=== PATIENT | male | born 1960 | race Caucasian/White ===

== ENCOUNTER → 2017-12-01 | Outpatient (CLI) | payer BC ==
[~2017-12-01] MED LIST: IOPAMIDOL (ISOVUE 370) 100 ML BTL IV ONE
== END ==
LOC: FIMAGING 14:12
PROVIDERS: ATTEND Internal Medicine Cardiovascular Disease
DX: I71.2 Thoracic aortic aneurysm, without rupture (principal); K76.0 Fatty (change of) liver, not elsewhere classified
CPT/HCPCS: Q9967

== ENCOUNTER → 2018-10-30 | Outpatient (CLI) | payer BC | LOC: FIMAGING 12:59 ==

== ENCOUNTER 2018-11-06 05:48 | Observation (INO) | payer BC ==
[2018-11-06] MEDS ORDERED: ceFAZolin 2 GM/DEXTROSE 100 ML IV ONE (06:06)
[2018-11-06] MEDS ORDERED: DEXAMETHASONE 4 MG/ML VIAL IVP ONE (06:06)
[2018-11-06] MEDS ORDERED: FAMOTIDINE 20 MG TAB PO ONE (06:06)
[2018-11-06] MEDS ORDERED: ACETAMINOPHEN 325 MG TAB PO ONE (06:06)
[2018-11-06] MEDS ORDERED: LR 1,000 ML IV ONE (06:07)
--- NOTE | 2018-11-06 06:13 | PDHPUP ---
History & Physical Update H&P update statement: This history and physical update is based on an assessment of the patient which was completed after admission or registration (within 24 hours), but prior to the surgery/procedure. H&P update: H&P reviewed & patient examined, no change in patient's condition since H&P completed
[2018-11-06] MEDS ORDERED: TRANEXAMIC ACID 3,000 MG/50 ML BAG IRR ONE (07:00)
[2018-11-06] MEDS ORDERED: ONDANSETRON 4 MG/2 ML VIAL IVP PRN ×2 (07:27→09:41)
[2018-11-06] MEDS ORDERED: oxyCODONE IR 5 MG TAB PO PRN (07:27)
[2018-11-06] MEDS ORDERED: DEXAMETHASONE 4 MG/ML VIAL IVP PRN (07:27)
[2018-11-06] MEDS ORDERED: ALBUTEROL 3 ML DEYVIAL IH PRN (07:27)
[2018-11-06] MEDS ORDERED: NALOXONE HCL 0.4 MG/ML INJ IVP PRN (07:27)
[2018-11-06] MEDS ORDERED: MIDAZOLAM 2 MG/2 ML VIAL IVP ONE (07:27)
[2018-11-06] MEDS ORDERED: ACETAMINOPHEN 500 MG TAB PO PRN (07:27)
--- NOTE | 2018-11-06 07:28 | PDANEPAE ---
ANE History of Present Illness R Knee ANE Past Medical History - Cardiovascular History Hx Hypertension: Yes Hx Arrhythmias: No Hx Chest Pain: No Hx Coronary Artery / Peripheral Vascular Disease: No Hx CHF / Valvular Disease: No Hx Palpitations: No Cardiovascular History Comment: hx of PE - Pulmonary History Hx COPD: No Hx Asthma/Reactive Airway Disease: No Hx Recent Upper Respiratory Infection: No Hx Oxygen in Use at Home: No Hx Sleep Apnea: Yes Sleep Apnea Screening Result - Last Documented: Positive - Neurologic History Hx Cerebrovascular Accident: No Hx Seizures: No Hx Dementia: No - Endocrine History Hx Diabetes: No - Renal History Hx Renal Disorders: No Renal History Comment: pre-renal - Liver History Hx Hepatic Disorders: No - Neurological & Psychiatric Hx Hx Neurological and Psychiatric Disorders: No - Cancer History Hx Cancer: No - Congenital Disorder History Hx Congenital Disorders: No - GI History Hx Gastrointestinal Disorders: No - Other Health History Other Health History: none - Chronic Pain History Chronic Pain: No - Surgical History Prior Surgeries: none in last 5 yrs. 04/2012 meniscus repair ANE Review of Systems Review of Systems: - Exercise capacity METS (RN): 5 METS ANE Patient History - Allergies Allergies/Adverse Reactions: cat dander Allergy (Verified 11/06/18 06:08) - Home Medications Home Medications: Ascorbic Acid [Vitamin C 500 mg (*)] 500 mg PO DAILY 10/20/18 [Last Taken ] Cholecalciferol Vit D3 [Vitamin D3 (*)] 1,000 units PO DAILY 10/20/18 [Last Taken 10/23/18] Furosemide [Lasix 20 MG (*)] 20 mg PO DAILY 10/20/18 [Last Taken 11/04/18] Gabapentin [Neurontin 300 MG (*)] 300 mg PO HS 10/20/18 [Last Taken 11/05/18] Glucosamine Sulfate [Glucosamine Sulfate 500 MG (*)] 500 mg PO DAILY 10/20/18 [ Last Taken 10/23/18] Herbals/Supplements -Info Only 1 ea PO DAILY 10/20/18 [Last Taken Unknown] Lisinopril [Zestril 40 mg (*)] 40 mg PO DAILY 10/20/18 [Last Taken 11/05/18] Multivitamins [Multivitamin (*)] 1 each PO DAILY 10/20/18 [Last Taken 10/23/18] Nebivolol HCl [Bystolic] 10 mg PO DAILY 10/20/18 [Last Taken 11/04/18] [place]-3 Fatty Acids [Fish Oil 1000 mg (*)] 1,000 mg PO DAILY 10/20/18 [Last Taken Unknown] celeCOXIB [Celebrex (*)] 200 mg PO DAILY 10/20/18 [Last Taken 11/05/18] - Smoking Hx Smoking Status: Former smoker - Family Anes Hx Family Hx Anesthesia Complications: none ANE Labs/Vital Signs - Vital Signs Blood Pressure: 155/88 Heart Rate: 58 Respiratory Rate: 16 O2 Sat (%): 95 Height: 180.34 cm Weight: 104.326 kg ANE Physical Exam - Airway Neck exam: FROM Mallampati Score: Class 2 Mouth exam: normal dental/mouth exam - Pulmonary Pulmonary: clear to auscultation - Cardiovascular Cardiovascular: regular rate and rhythym - ASA Status ASA Status: III ANE Anesthesia Plan Anesthesia Plan: spinal Regional Anesthesia: adductor canal FNB
[2018-11-06] MEDS ORDERED: TRANEXAMIC ACID 3,000 MG in NS (SYRINGE) 50 ML IRR ONE (08:00)
[2018-11-06] MEDS ORDERED: ROPIVACAINE 0.2% 80 MG, EPINEPHrine 0.2 MG, KETOROLAC TROMETHAMINE 30 MG in SYRINGE 0 ML IU ONE (08:00)
[2018-11-06] MEDS ORDERED: LIDOCAINE 2% 5 ML SDV ONE (08:02)
[2018-11-06] MEDS ORDERED: PROPOFOL/EMULSION 500 MG/50 ML BOTTLE IV ONE ×2 (08:02→08:49)
[2018-11-06] MEDS ORDERED: PROPOFOL 200 MG/20 ML VIAL ONE (08:27)
[2018-11-06] MEDS ORDERED: fentaNYL 100 MCG/2 ML INJ ONE ×6 (08:28→13:01)
[2018-11-06] MEDS ORDERED: ONDANSETRON 4 MG/2 ML VIAL ONE (08:33)
[2018-11-06] MEDS ORDERED: ROPIVACAINE HCL 150 MG/30 ML INJ ONE (08:45)
--- NOTE | 2018-11-06 09:40 | POSTOPPROG ---
Post Op Note Date of Operation: 11/06/18 Surgeon: Krys Palencia Print Shop Helper: Arabella Zuleta PA-C Anesthesiologist: Dr. Willie Hurst Anesthesia: Spinal, Other (Specify) (adductor canal block) Pre-op Diagnosis: right knee OA Post-op Diagnosis: same Indication: right knee pain Procedure: right TKA, robot assisted Findings: severe OA of right knee Inf/Abcess present in the surg proc area at time of surgery?: No EBL: 50-100
[2018-11-06] MEDS ORDERED: POLYETHYLENE GLYCOL 3350 17 GM PKT PO PRN (09:41)
[2018-11-06] MEDS ORDERED: PROMETHAZINE HCL 25 MG/ML INJ IVP PRN (09:41)
[2018-11-06] MEDS ORDERED: TEMAZEPAM 15 MG CAP PO PRN (09:41)
[2018-11-06] MEDS ORDERED: diphenhydrAMINE 25 MG CAP PO PRN (09:41)
[2018-11-06] MEDS ORDERED: BISACODYL 10 MG SUPP PR PRN (09:41)
[2018-11-06] MEDS ORDERED: MAGNESIUM HYDROXIDE 30 ML UDCUP PO PRN (09:41)
[2018-11-06] MEDS ORDERED: DIPHENOXYLATE/ATROPINE LOMOTIL 1 TAB PO PRN (09:41)
[2018-11-06] MEDS ORDERED: PROMETHAZINE HCL 25 MG SUPPR PR PRN (09:41)
[2018-11-06] MEDS ORDERED: ONDANSETRON DISINTEGRATING 4 MG TAB PO PRN (09:41)
[2018-11-06] MEDS ORDERED: METOCLOPRAMIDE 10 MG/2 ML VIAL IVP PRN (09:41)
[2018-11-06] MEDS ORDERED: LACTULOSE 20 GM/30 ML UDCUP PO PRN (09:41)
[2018-11-06] MEDS ORDERED: LR 1,000 ML IV SCH (10:00)
[2018-11-06] MEDS: fentaNYL 100 MCG/2 ML INJ IVP PRN ×6 (10:06→13:34)
[2018-11-06] MEDS ORDERED: HYDROmorphONE/DILAUDID 2 MG/ML INJ ONE (10:23)
[2018-11-06] MEDS: HYDROmorphONE/DILAUDID 2 MG/ML INJ IVP PRN ×5 (10:25→13:03)
--- NOTE | 2018-11-06 10:51 | POSTANESTH ---
Post Anesthetic Evaluation Cardiovascular Status: Normal, Stable Respiratory Status: Normal, Stable Level of Consciousness/Mental Status: Can Participate in Eval, Mildly Sleepy, Arousable Pain Control: Adequate, Prn Tx Ordered Nausea/Vomiting Control: Adequate, Prn Tx Ordered Complications Possibly Related to Anesthesia: None Noted
[2018-11-06] MEDS: oxyCODONE IR 5 MG TAB PO PRN ×4 (12:45→23:57)
[2018-11-06] MEDS: CYCLOBENZAPRINE 10 MG TAB PO PRN (14:20)
[2018-11-06] MEDS ORDERED: WARFARIN SODIUM 5 MG TAB PO SCH (16:00)
[2018-11-06] MEDS: ACETAMINOPHEN 325 MG TAB PO SCH ×2 (16:23→21:46)
[2018-11-06] MEDS: ceFAZolin 2 GM/DEXTROSE 100 ML IV SCH ×2 (16:26→23:57)
--- NOTE | 2018-11-06 16:45 | GOP ---
[f rep st] OPERATIVE REPORT DATE OF OPERATION: 11/06/2018 SURGEON: Glenny Palencia MD ROVING INSPECTOR: 1. Nathalia Palencia, PAC. 2. Alyce Zuleta, PAC. ANESTHESIA: Spinal. PREOPERATIVE DIAGNOSIS: Right knee osteoarthritis. POSTOPERATIVE DIAGNOSIS: Right knee osteoarthritis. PROCEDURE PERFORMED: Right total knee arthroplasty with computer navigation, robotic assist. FINDINGS: Pathology: Severe lateral and patellofemoral osteoarthritis. ESTIMATED BLOOD LOSS: 30 cc. INDICATIONS: The patient is a 58-year-old male with severe and progressive pain and deformity of the right knee unresponsive to conservative care. The risks and benefits of surgical intervention were explained in detail. DESCRIPTION OF PROCEDURE: The patient was brought to the operative room and placed on the table in t he supine position. Spinal anesthesia was induced without difficulty. A pneumatic tourniquet was appl ied about the right proximal thigh, and the leg was prepped and draped in a sterile fashion. The leg esquivel was applied. After exsanguination by elevation the tourniquet was inflated to 250 mmHg. Incision was made anterior medial from the tibial tuberosity to a point cm proximal to the superior pole of the patella. Medial parapatellar arthrotomy was carried out from the superior pole of the patella and posteriorly in line with the fibers of the Type II VMO. The medial collateral liga ment was elevated and the infrapatellar fat pad was resected. The patella was everted and the articular surface was excised. A 38 mm patellar button was placed. Attention was turned first to the distal aspect of the femur. After exposure of the femur, 2 half pi ns were placed for fixation of the femoral array. In a similar fashion, 2 pins were placed anteromed ial on the tibia for fixation of the tibial array. External land marking and registration of the hip center was performed without difficulty. Internal femoral and tibial registration was carried out w ithout difficulty and the femoral and tibial checkpoints were placed and verified for accuracy. Attention was turned to the femur. The foot print for the size 5 femoral component was cut with the saw using the [email or web address] robotic system and verified for accuracy against the CT based plan. In a similar f ashion, the saw was used to cut the footprint for the size 5 tibial component using the [email or web address] system an d verified for accuracy against the CT based plan. The tibial articular surface was excised without d ifficulty, followed by the intercondylar box cut. The knee was extended and the remnants of the medial and lateral meniscus were excised. The posterior capsule was injected with ropivacaine, epinephrine and Toradol. A size 5 tibial tray was positioned . Trial reduction was then carried out. There was excellent range of motion, alignment, and stability using the 5 x 9 mm polyethylene. All trials were then removed. The joint was thoroughly irrigated and carefully dried. The press-fit c omponents were implanted. The permanent 5 x 9 mm polyethylene was placed without difficulty. The tourniquet was deflated and all bleeders were coagulated. The wound was thoroughly irrigated and closed using interrupted sutures of 2-0 Vicryl for the joint capsule. The subcu was closed with 3-0 V icryl and the skin with 4-0 Monocryl. Dermabond and Steri-Strips were applied followed by a compress emili dressing. The patient was then moved from the operating room to the recovery room in good conditi on, having tolerated the procedure well. /[id number]/MODL
[2018-11-06] MEDS: FAMOTIDINE 20 MG TAB PO SCH (20:14)
[2018-11-06] MEDS: SENNOSIDES/DOCUSATE SODIUM TAB PO SCH (20:16)
[2018-11-06] MEDS ORDERED: GABAPENTIN 300 MG CAP PO SCH (21:00)
[2018-11-07] MEDS: CYCLOBENZAPRINE 10 MG TAB PO PRN (00:47)
[2018-11-07] MEDS: ACETAMINOPHEN 325 MG TAB PO SCH ×2 (04:18→09:20)
[2018-11-07 05:35] LABS: INR 1.05 (0.83-1.16); PROTIME(PATIENT) 13.3 SEC (12.0-15.0)
[2018-11-07] MEDS: oxyCODONE IR 5 MG TAB PO PRN ×3 (05:57→12:29)
[2018-11-07 07:48] VITALS: BP 150/97
[2018-11-07] MEDS ORDERED: LISINOPRIL 40 MG TAB PO SCH (09:00)
[2018-11-07] MEDS ORDERED: FUROSEMIDE 20 MG TAB PO SCH (09:00)
[2018-11-07] MEDS ORDERED: ENOXAPARIN 40 MG/0.4 ML SYR SC SCH (09:00)
[2018-11-07] MEDS ORDERED: NEBIVOLOL HCL 5 MG TAB PO SCH (09:00)
[2018-11-07] MEDS: SENNOSIDES/DOCUSATE SODIUM TAB PO SCH (09:18)
[2018-11-07] MEDS: FAMOTIDINE 20 MG TAB PO SCH (09:18)
--- NOTE | 2018-11-07 11:39 | SOAPPROG ---
SOAP Progress Note Assessment/Plan: Assessment: Patient is doing well POD 1 s/p Pain management: pain is well controlled on oral pain meds. VTE ppx: recommend coumadin/Lovenox for DVT prophylaxis. Pt. will have INR checked Friday morning and our office will call with results and any dose adjustments, cont GOOD and SCDs Anemia: level is expected initially postop. Asymptomatic. Continue to monitor D/c planning:patient has done much better than anticipated. Patient is stable, BP stable, pain well controlled and patient is eager for discharge to home. May d/c to home today pending release from PT Plan: 11/07/18 11:36 Subjective: No nausea, vomiting, shortness of breath, or chest pain Objective: Vital Signs Temp Pulse Resp BP Pulse Ox 36.6 C 64 16 150/97 H 94 11/07/18 07:47 11/07/18 09:19 11/07/18 07:47 11/07/18 09:19 11/07/18 07:47 Laboratory Results 11/07/18 04:22 11/06/18 11/07/18 11/08/18 05:59 05:59 06:59 Intake Total 2850 Output Total 1430 Balance 1420 PT 13.3 SEC (12.0-15.0) 11/07/18 04:22 INR 1.05 (0.83-1.16) 11/07/18 04:22 RLE: incision dressing clean and dry, NVI, positive PF/DF ICD10 Worksheet Patient Problems: Problems Problem Status Onset Primary osteoarthritis of right knee Acute Primary osteoarthritis of right knee Acute
--- NOTE | 2018-11-07 12:17 | ASMTDCNOTE ---
Case Management Discharge Discharge Order Complete? Answers: Yes Patient to Obtain Answers: via Family Medications Transportation Arranged Answers: Family/Friends Discharge Comments Notes: Pt is s/p a planned R TKA. PT has cleared him for outpatient therapy. He is discharging home today with no CM needs. Date Signed: 11/07/2018 12:17 PM Electronically Signed By:MARY Díaz
--- NOTE | 2018-11-07 12:17 | ASMTLACE ---
LACE Length of stay for Answers: 1 day current admission Acuity / Level of Answers: No Care: Did the patient have an inpatient admission? Comorbidities - select Answers: Other Notes: HTN; PE all that apply # of Emergency department Answers: 0 visits in the last 6 months Score: 2 Date Signed: 11/07/2018 12:16 PM Electronically Signed By:MARY Díaz
--- NOTE | 2018-11-07 12:22 | ASDISCHSUM ---
Discharge Information Plan Status:Home with No Needs Medically Cleared to Leave:11/06/2018 Discharge Date:11/06/2018 CM D/C Disposition:Home, Routine, Self-Care ADT D/C Disposition:Home, Routine, Self-Care Projected Discharge Date:11/06/2018 Transportation at D/C:Friend Discharge Delay Reason: Follow-Up Date:11/06/2018 Discharge Slot: Final Diagnosis: Placement Information Patient Contact Information Contact Name:NIGEL Relationship:Friend Address: City: [facility] Phone: State/Zip Code: Email: Financial Information Financial Class:[facility] Primary Plan Desc:[employer] Primary Plan Number:[id number] Secondary Plan Desc: Secondary Plan Number: Assessment Information LACE LACE Length of stay for Answers: 1 day current admission Acuity / Level of Answers: No Care: Did the patient have an inpatient admission? Comorbidities - select Answers: Other Notes: HTN; PE all that apply # of Emergency department Answers: 0 visits in the last 6 months Score: 2 Date Signed: 11/07/2018 12:16 PM Electronically Signed By:MARY Díaz Case Management Discharge Plan Note Case Management Discharge Discharge Order Complete? Answers: Yes Patient to Obtain Answers: via Family Medications Transportation Arranged Answers: Family/Friends Discharge Comments Notes: Pt is s/p a planned R TKA. PT has cleared him for outpatient therapy. He is discharging home today with no CM needs. Date Signed: 11/07/2018 12:17 PM Electronically Signed By:MARY Díaz Intervention Information
--- NOTE | 2018-11-07 15:58 | GDS ---
[f rep st] DISCHARGE SUMMARY SUPERVISING PHYSICIAN: Dr. Luther Palencia. ADMISSION DIAGNOSIS: Right knee osteoarthritis. DISCHARGE DIAGNOSIS: Right knee osteoarthritis. PROCEDURE: Right total knee arthroplasty, robot assisted. VTE PROPHYLAXIS: Recommend Coumadin and Lovenox injections. The patient will have INR level checked on Friday and our office will call with results and dose adjustment. BRIEF DESCRIPTION OF HOSPITAL STAY: Patient was admitted for an elective joint arthroplasty. The pa tient tolerated the procedure well and has passed physical therapy. The patient was given appropriat e antibiotic prophylaxis and venous thromboembolism prophylaxis. The patient's pain was well control led on oral pain medication, patient was holding down food, and had urinated. Decision was made to d ischarge the patient. The patient was given post-operative prescriptions pre-operatively. PLAN: Follow up in Dr. Palencia's office on November 24, 2018, at 9 a.m. /[id number]/MODL
== END 2018-11-07 12:43 | disposition home or self-care (01) ==
LOC: F3N 05:48
PROVIDERS: ADMIT Orthopaedic Surgery; ATTEND Orthopaedic Surgery
PROC: 8E0Y0CZ Robotic Assisted Procedure of Lower Extremity, Open Approach (ICD-10-PCS; principal; 2018-11-06 08:00)
PROC: 8E0YXBG Computer Assisted Procedure of Lower Extremity, With Computerized Tomography (ICD-10-PCS; principal; 2018-11-06 08:00)
PROC: 0SRC06Z Replacement of Right Knee Joint with Oxidized Zirconium on Polyethylene Synthetic Substitute, Open Approach (ICD-10-PCS; principal; 2018-11-06 08:00)
DX: M17.11 Unilateral primary osteoarthritis, right knee (principal); Z86.711 Personal history of pulmonary embolism; I10 Essential (primary) hypertension; E78.5 Hyperlipidemia, unspecified; G47.33 Obstructive sleep apnea (adult) (pediatric)
CPT/HCPCS: 27447; 73560; 97116; 97161; G0378; J0171; J0690; J1100; J1170; J1650; J1885; J2250; J2270; J2405; J2704; J2795; J3010